=== PATIENT | male | born 1995 ===

== ENCOUNTER 2020-01-14 15:55 | Emergency (ER) | payer SELFPAY ==
[~2020-01-14] VITALS: Ht 172.7 cm; Wt 83.0 kg
[2020-01-14 16:32] VITALS: BP 126/89
[2020-01-14] MEDS ORDERED: CEPH250T PO (17:36)
== END 2020-01-14 18:01 | disposition home or self-care (01) ==
LOC: EDBD 15:56 → ER 15:56
DX: L03.032 Cellulitis of left toe (principal); L03.031 Cellulitis of right toe; M79.662 Pain in left lower leg; M79.661 Pain in right lower leg; Z79.2 Long term (current) use of antibiotics
CPT/HCPCS: 73590; 99284